=== PATIENT | male | born 1955 | race Caucasian/White ===

== ENCOUNTER 2023-11-13 12:47 | Emergency (ER) | payer OTHER, MEDICARE, SELFPAY ==
[2023-11-13 12:53] VITALS: BP 190/110; PULSE 88; TEMP 37; O2SAT 98
--- NOTE | 2023-11-13 13:10 | XR_ITS ---
The [address] [address] Patient Name: PATITO REYES MRN: [id number] date: 1955 Sex: M Assigned Patient Location: ER Current Patient Location: ER Accession/Order Number: [id number] Exam Date: 11/13/2023 13:13 Report Date: 11/13/2023 13:37 At the request of: SUSHIL JI Procedure: XR ankle RT min 3V EXAM: XR ankle RT min 3V HISTORY: injury COMPARISON: None. TECHNIQUE: 3 views of the right ankle were obtained. FINDINGS: There is no evidence of an acute fracture or dislocation. Mild degenerative changes are seen at the ankle joint with very slight irregularity along the articular surface of the talar dome suggesting an old injury. The subtalar joints are intact. Osteophytes arise from the posterior calcaneus. Diffuse soft tissue swelling about the ankle is noted. XR/XR ankle RT min 3V IMPRESSION: Mild degenerative changes are seen about the ankle. There is no evidence of an acute fracture or dislocation. Diffuse soft tissue swelling is noted. Direct comparison with a previous study would be helpful in determining the chronicity of these findings. Electronically authenticated by: BRYAN VILCHIS Date: 11/13/2023 13:37
--- NOTE | 2023-11-13 13:10 | XR_ITS ---
The [address] [address] Patient Name: PATITO REYES MRN: [id number] date: 1955 Sex: M Assigned Patient Location: ER Current Patient Location: ER Accession/Order Number: [id number] Exam Date: 11/13/2023 13:13 Report Date: 11/13/2023 14:00 At the request of: SUSHIL JI Procedure: XR tibia fibula RT 2V PROCEDURE: XR tibia fibula RT 2V COMPARISON: None. HISTORY: injury FINDINGS: BONES:No acute fracture or dislocation. Enthesopathic spurring of the calcaneus at the Achilles insertion. Enthesopathic spurring of the inferior patella and anterior tibial tubercle SOFT TISSUES:Soft tissue swelling anterior mid pagan demarcated with the BB EFFUSION:None visible. OTHER: Negative. XR/XR tibia fibula RT 2V IMPRESSION: No acute fracture Electronically authenticated by: IRVIN BORGES Date: 11/13/2023 14:00
--- NOTE | 2023-11-13 13:11 | ED_ITS ---
HPI HPI - Extremity Injury (Lower) General Chief Complaint: Extremity Injury, Lower Stated Complaint: LOWER RIGHT EXTREMITY SWELLING Time Seen by Provider: 11/13/23 13:04 Source: patient Mode of arrival: walk-in History of Present Illness HPI Narrative: 68 year old male presents to the ED for pain, swelling to his right lower leg and ankle s/p injury 2 weeks ago. Reports slipping off of his boat; his leg went under the deck. Denies fever, chills, weakness, N/T. Related Data Home Medications ?Medication ?Instructions ?Recorded ?Confirmed rosuvastatin 10 mg tablet 10 mg PO DAILY 11/13/23 11/13/23 Allergies Allergy/AdvReac Type Severity Reaction Status Date / Time Penicillins Allergy Severe Shakiness Verified 11/13/23 12:57 Opioid HPI Opioid Management Most Recent Pain and Opioid Data: Last Pain Scale 5 11/13/23 12:59 Review of Systems ROS Constitutional Denies: fever or chills Cardiovascular Denies: chest pain Respiratory Denies: shortness of breath Musculoskeletal Reports: extremity pain and extremity swelling; Denies: back pain Integumentary/Breast Reports: redness Neurological Denies: numbness in extremities, weakness in extremities or dizziness Exam Constitutional Vital Signs, click to edit/add: Last Vital Signs Temp 98.6 F 11/13/23 12:53 Pulse 88 11/13/23 12:53 Resp 16 11/13/23 12:53 BP 190/110 H 11/13/23 12:53 Pulse Ox 98 11/13/23 12:53 O2 Del Method Room Air 11/13/23 12:53 Common normals: no apparent distress and oriented x3 Orientation/consciousness: Yes awake HENMT Mouth: lip normal Eye Common normals: conjunctivae normal and no scleral icterus Neck & C-Spine Common normals: supple Respiratory Common normals: normal respiratory effort Effort & inspection: able to speak in complete sentences Cardio Common normals: regular rate Peripheral pulses: posterior tibial pulses present and dorsalis pedis pulses present Extremity Other: Raised, erythematous, tender area to right anterior lower leg. There is mild swelling to the lower anterior leg and ankle. Pt denies calf pain, calf tenderness. Pedal pulses palpable. Distal sensation intact. Neuro Common normals: oriented x3 Sensorium/orientation: awake and alert Course Vital Signs Vital signs: Vital Signs Temperature 98.6 F 11/13/23 12:53 Pulse Rate 88 11/13/23 12:53 Respiratory Rate 16 11/13/23 12:53 Blood Pressure 190/110 H 11/13/23 12:53 Pulse Oximetry 98 11/13/23 12:53 Oxygen Delivery Method Room Air 11/13/23 12:53 Temperature 98.6 F 11/13/23 12:53 Pulse Rate 88 11/13/23 12:53 Respiratory Rate 16 11/13/23 12:53 Blood Pressure 190/110 H 11/13/23 12:53 Pulse Oximetry 98 11/13/23 12:53 Oxygen Delivery Method Room Air 11/13/23 12:53 MDM - Extremity Injury (Lower) MDM Narrative Medical decision making narrative: Hematoma was noted on examination to the anterior lower leg. The patient denied calf pain/tenderness. X-ray showed diffuse soft tissue swelling to the ankle. Follow up with pcp for a recheck, further evaluation and treatment. Medical Records Attestation: I reviewed the patient's medical records. Imaging Data XR tib/fib right: Attestation: I have reviewed the pertinent imaging results. Radiologist's impression: ITS Impressions Ankle X-Ray 11/13/23 13:10 IMPRESSION: Mild degenerative changes are seen about the ankle. There is no evidence of an acute fracture or dislocation. Diffuse soft tissue swelling is noted. Direct comparison with a previous study would be helpful in determining the chronicity of these findings. Electronically authenticated by: BRYAN VILCHIS Date: 11/13/2023 13:37 Tibia/Fibula X-Ray 11/13/23 13:10 IMPRESSION: No acute fracture Electronically authenticated by: IRVIN BORGES Date: 11/13/2023 14:00 Discharge Plan Discharge Chief Complaint: Extremity Injury, Lower Clinical Impression: Hematoma Patient Disposition: Home, Self-Care Time of Disposition Decision: 14:52 Condition: Good Mode of Transportation: Private Vehicle Prescriptions / Home Meds: No Action rosuvastatin 10 mg tablet 10 mg PO DAILY Print Language: Upper Sorbian Instructions: Hematoma (ED) Additional Instructions: Return to the ER for new or worsening symptoms. Referrals: Valdo Monzon DO [Primary Care Provider] - 1 week
[2023-11-13 13:49] VITALS: BP 178/80; PULSE 84; O2SAT 99
== END 2023-11-13 14:59 | disposition home or self-care (01) ==
PROVIDERS: Emergency Provider Emergency Medicine; PCP Family Medicine
DX: S80.11XA Contusion of right lower leg, initial encounter (principal); V94.0XXA Hitting object or bottom of body of water due to fall from watercraft, initial encounter
CPT/HCPCS: 73590; 73610; 99283

== ENCOUNTER 2024-03-03 08:15 | Outpatient (OUT) | payer OTHER, SELFPAY ==
[2024-03-03 08:59] LABS: Basophils Absolute Auto 0.1 10^3/uL (0.0-0.1); Basophils Percent Auto 0.8 % (0.2-2.0); Eosinophils Absolute Auto 0.2 10^3/uL (0.0-0.7); Eosinophils Percent Auto 2.6 % (0.9-7.0); Hematocrit 50.3 % (42.0-54.0); Hemoglobin 16.9 g/dL (14.0-18.0); Immature Granulocytes Abs Auto 0.02 10^3/uL (0.00-0.03); Immature Granulocytes Pct Auto 0.3 % (0.0-0.5); Lymphocytes Percent Auto 32.6 % (20.5-60.0); Mean Corpuscular HGB Conc 33.6 g/dL (29.9-35.2); Mean Corpuscular Hemoglobin 29.9 pg (25.9-34.0); Mean Corpuscular Volume 88.9 fL (80.0-94.0); Mean Platelet Volume 10.6 fL (9.5-13.5); Monocytes Absolute Auto 0.7 10^3/uL (0.3-0.8); Monocytes Percent Auto 10.8 % (1.7-12.0); Neutrophils Absolute Auto 3.2 10^3/uL (1.4-6.5); Neutrophils Percent Auto 52.9 % (43.0-75.0); Platelet Count 200 10^3/uL (150-450); Red Blood Count 5.66 10^6/uL (4.70-6.10); Red Cell Distribution Width 12.6 % (11.0-15.0); White Blood Count 6.1 10^3/uL (4.0-11.0)
== END 2024-03-03 08:16 | disposition home or self-care (01) ==
LOC: LAB 08:20
PROVIDERS: PCP Family Medicine
DX: Z01.812 Encounter for preprocedural laboratory examination (principal); H02.839 Dermatochalasis of unspecified eye, unspecified eyelid
CPT/HCPCS: 36415; 85025

== ENCOUNTER 2024-11-22 16:25 | Outpatient (OUT) | payer OTHER, SELFPAY ==
--- NOTE | 2024-11-22 17:06 | XR_ITS ---
[place] [id number] Patient Name: PATITO REYES MRN: [id number] date: 1955 Sex: M Assigned Patient Location: [facility] Current Patient Location: [facility] Accession/Order Number: [id number] Exam Date: 11/22/2024 17:00 Report Date: 11/22/2024 22:12 At the request of: RAMAN CARMONA DO Procedure: XR foot RT min 3V 3 views right foot plain film COMPARISON:None HISTORY: Posterior foot pain. ACUTE FINDINGS: None DEGENERATIVE CHANGE: Posterior and inferior calcaneal spurring. Moderate distal degenerative changes. SOFT TISSUE FINDINGS: Unremarkable JOINT EFFUSION: None POSTOP CHANGES: None BONE MINERALIZATION: Adequate XR/XR foot RT min 3V IMPRESSION: Calcaneal spurring. Degenerative changes. Concern for Achilles tendon tear. Impression dictated by: Damion Chamberlain M.D. 11/22/2024 10:12 PM Dictation Location: [facility] Electronically authenticated by: [id number] Y Date: 11/22/2024 22:12
--- NOTE | 2024-11-22 17:06 | XR_ITS ---
The [address] [address] Patient Name: PATITO REYES MRN: [id number] date: 1955 Sex: M Assigned Patient Location: [facility] Current Patient Location: [facility] Accession/Order Number: [id number] Exam Date: 11/22/2024 17:00 Report Date: 11/22/2024 22:10 At the request of: RAMAN CARMONA DO Procedure: XR ankle RT min 3V 3 views right ankle plain film COMPARISON: None HISTORY: Right posterior foot and ankle pain. Achilles injury ACUTE FINDINGS: None DEGENERATIVE CHANGE: Posterior and inferior calcaneal spurring. A calcific density superior to the Achilles tendon insertion enthesophyte. Adjacent edema in this region. Concern for tear of the Achilles tendon.. SOFT TISSUE FINDINGS: Unremarkable JOINT EFFUSION: None POSTOP CHANGES: None BONE MINERALIZATION: Adequate XR/XR ankle RT min 3V IMPRESSION: Posterior calcaneal enthesophyte with adjacent bony fragments and thickening of the Achilles tendon concerning for tear. Can consider further assessment with MRI of left ankle. Impression dictated by: Damion Chamberlain M.D. 11/22/2024 10:10 PM Dictation Location[facility] Electronically authenticated by: [id number] Y Date: 11/22/2024 22:10
== END 2024-11-22 16:26 | disposition home or self-care (01) ==
PROVIDERS: PCP Family Medicine; Visit Provider Family Medicine
DX: M79.671 Pain in right foot (principal); M25.571 Pain in right ankle and joints of right foot; M77.31 Calcaneal spur, right foot
CPT/HCPCS: 73610; 73630

== ENCOUNTER 2024-12-19 13:43 | Outpatient (RCR) | payer OTHER, SELFPAY | END 2025-01-25 10:13 | disposition home or self-care (01) | LOC: PT 13:43 | PROVIDERS: PCP Family Medicine; Visit Provider Orthopaedic Surgery | DX: M76.61 Achilles tendinitis, right leg (principal) | CPT/HCPCS: 97110; 97112; 97116; 97161 ==

== ENCOUNTER 2025-02-08 14:00 | Emergency (ER) | payer OTHER, MEDICARE, SELFPAY ==
[2025-02-08 14:04] VITALS: BP 145/96; PULSE 122; TEMP 38.1; O2SAT 99; BMI 31.6
--- NOTE | 2025-02-08 14:18 | XR_ITS ---
The [place] [id number] Patient Name: PATITO REYES MRN: [id number] date: 1955 Sex: M Assigned Patient Location: ED.MAIN Current Patient Location: ED.MAIN Accession/Order Number: [id number] Exam Date: 02/08/2025 14:48 Report Date: 02/08/2025 15:35 At the request of: SUSHIL JI Procedure: XR chest 2V XR chest 2V 02/08/2025 2:52 PM SIGNS AND SYMPTOMS: ^cough PROTOCOL: Frontal and lateral radiograph of the chest COMPARISON: None FINDINGS: The trachea is midline. The heart and mediastinal structures are within normal limits. The lung parenchyma is clear. The bony thorax is intact. Degenerative changes are noted in the thoracic spine. XR/XR chest 2V IMPRESSION: No acute cardiopulmonary pathology. Impression dictated by: Darinel Bailey M.D. 02/08/2025 3:35 PM Dictation Location: [place] [address] Electronically authenticated by: [id number] Y Date: 02/08/2025 15:35
--- NOTE | 2025-02-08 14:20 | ED_ITS ---
HPI - URI/Sore Throat General Chief Complaint: Upper Respiratory Infection Stated Complaint: FLU LIKE SYMPTOMS Time Seen by Provider: 02/08/25 14:15 Source: patient History of Present Illness HPI Narrative: 69 year old male presents to the ED for cough, congestion, body aches, fatigue, chills, fever. Onset was 02/04/25. Denies SOB, N/V/D, abd pain. He took Tylenol at 0700 this morning. Related Data Home Medications ?Medication ?Instructions ?Recorded ?Confirmed rosuvastatin 10 mg tablet 10 mg PO DAILY 11/13/2310/25 Previous Rx's ?Medication ?Instructions ?Recorded benzonatate 100 mg capsule 100 mg PO TID PRN cough #20 caps 02/08/25 hydrocodone 10 mg-chlorpheniramine 5 ml PO .nightly DE N cough 6 days 02/08/25 8 mg/5 mL oral susp extend.rel 12hr #30 mL Allergies Allergy/AdvReac Type Severity Reaction Status Date / Time Penicillins Allergy Severe Shakiness Verified 11/13/23 12:57 Review of Systems ROS Constitutional Reports: fever, chills and fatigue Ears, nose, mouth, and throat Reports: nasal discharge and nasal congestion; Denies: throat pain, neck pain, ear pain or ear discharge Cardiovascular Denies: chest pain Respiratory Reports: cough; Denies: shortness of breath Gastrointestinal Denies: abdominal pain, nausea, vomiting or diarrhea Musculoskeletal Reports: back pain Neurological Reports: headache; Denies: dizziness Exam Constitutional Vital Signs, click to edit/add: Last Vital Signs Temp 98.8 F 02/08/25 16:08 Pulse 108 H 02/08/25 15:47 Resp 20 02/08/25 14:04 BP 145/96 H 02/08/25 14:04 Pulse Ox 100 02/08/25 15:47 HENMT Common normals: external ears normal, moist oral mucous membranes and oropharynx normal Eye Common normals: PERRL, EOMs intact bilaterally, conjunctivae normal and no scleral icterus Neck & C-Spine Common normals: supple Chest Chest: symmetrical chest wall rise Respiratory Common normals: normal respiratory effort, no use of accessory muscles and clear to auscultation bilaterally Effort & inspection: able to speak in complete sentences and symmetric chest movement Cardio Common normals: regular rhythm Rate: tachycardic Neuro Common normals: oriented x3, moves all extremities and no focal motor deficits Sensorium/orientation: awake and alert Speech: speech normal Course Vital Signs Vital signs: Vital Signs Temperature 100.6 F H 02/08/25 14:04 Pulse Rate 122 H 02/08/25 14:04 Respiratory Rate 20 02/08/25 14:04 Blood Pressure 145/96 H 02/08/25 14:04 Pulse Oximetry 99 02/08/25 14:04 Temperature 98.8 F 02/08/25 16:08 Pulse Rate 108 H 02/08/25 15:47 Respiratory Rate 20 02/08/25 14:04 Blood Pressure 145/96 H 02/08/25 14:04 Pulse Oximetry 100 02/08/25 15:47 MDM - URI/Sore Throat MDM Narrative Medical decision making narrative: The patient tested positive for influenza A. Covid-19 was negative. Chest x-ray was negative for acute findings. Findings were discussed. He requested something to help him sleep; the coughing is keeping him awake at night. OARRS was reviewed. Prescriptions were provided for Tessalon perles and Tussionex. Follow up with pcp for a recheck, further evaluation and treatment. Return to the ED for worsening symptoms. Medical Records Attestation: I reviewed the patient's medical records. Lab Data Attestation: I reviewed the patient's lab results. Labs: Lab Results 02/08/25 Range/Units 14:10 Influenza Type A Ag Positive A Influenza Type B Ag Negative SARS-CoV-2 Ag (CV2AG) Negative (NEGATIVE) Imaging Data Chest x-ray: Attestation: I have reviewed the pertinent imaging results. Radiologist's impression: ITS Impressions Chest X-Ray 02/08/25 14:18 IMPRESSION: No acute cardiopulmonary pathology. Impression dictated by: Darinel Bailey M.D. 02/08/2025 3:35 PM Dictation Location: [place] [address] Electronically authenticated by: [id number] Y Date: 02/08/2025 15:35 Discharge Plan Discharge Chief Complaint: Upper Respiratory Infection Clinical Impression: Influenza A Patient Disposition: Home, Self-Care Time of Disposition Decision: 15:47 Condition: Good Mode of Transportation: Private Vehicle Prescriptions / Home Meds: New benzonatate 100 mg capsule 100 mg PO TID PRN (Reason: cough) Qty: 20 0RF hydrocodone-chlorpheniramine 10-8 mg/5 mL suspension,extended rel 12 hr 5 ml PO .nightly PRN (Reason: cough) 6 Days Qty: 30 0RF No Action rosuvastatin 10 mg tablet 10 mg PO DAILY Print Language: Citizen Of [place] Instructions: Influenza (ED) Additional Instructions: Return to the ED for worsening symptoms. Referrals: Valdo Monzon DO [Primary Care Provider] - 1 week Discharge Date/Time: 02/08/25 16:00
[2025-02-08 14:34] LABS: SARS-CoV-2 Ag NEGATIVE (NEGATIVE)
[2025-02-08] MEDS: IBUPROFEN 600 MG TABLET PO (14:36)
[2025-02-08] MEDS: ACETAMINOPHEN 325 MG TABLET 650 MG PO (14:36)
--- OUTSIDE RECORDS SUMMARY | 2025-02-08 14:38 | XMS_ITS | Clinical Summary ---
Author Organization [facility] Address [address] [place] [address] Care Team Providers Care Leasing Consultant Name Role Phone Valdo Monzon Tabitha COLEMAN Primary Care Provider [phone] Allergies Active AllergyReactionsCriticalityNoted DateCommentsPenicillin G011/20/2022 Other Reaction(s): Unknown Medications MedicationSigDispense QuantityRefillsLast FilledStart DateEnd DateStatus cyanocobalamin (Vitamin B-12) 1000 MCG tablet 1 (one) time each day at the same timeActive Echinacea 400 MG capsule Active omega-3 (fish oil) 1000 MG capsule 1 capsule 1 (one) time each day at the same timeActive rosuvastatin (Crestor) 10 MG tablet Active Cholecalciferol (Vitamin D3) 1000 units capsule 2 capsules 1 (one) time each day at the same timeActive ascorbic acid (Vitamin C) 500 MG tablet Take 500 mg by mouth DailyActive primidone (Mysoline) 50 MG tablet Indications:Essential tremorTAKE 1/2 TO 1 TABLET AT BEDTIME 30 tablet 5Active diclofenac sodium 3 % gel .VDNEVYU72/25/2025Active Active Problems No known active problems Encounters DateTypeDepartmentCare VqruAjhptpazpqq02/01/2025 8:00 AM ESTOffice Visit [facility] [address] [place] [id number] Noble Fernandes DO Achilles tendinitis of right lower extremity (Primary Dx)5Bamboo flowsheet [facility] [address] [address] Noble Fernandes, 01/23/20250528Fihivn47/24/6977Onwnwv02/16/2025 8:00 AM EDTOffice Visit [facility] [address] [place] [address] Noble Fernandes, DO Achilles tendinitis of right lower ucbirwoct26/16/2025amboo flowsheet [facility] [address] [place] [phone] Noble Fernandes, 12/08/20247691Judphi95/15/2025Travelfrom Last 3 Months Family History Medical HistoryRelationNameCommentsCOPDFatherMerril Fritz BollingerDiabetes FatherMerril Fritz BollingerStrokeMotherCarol Hayden BollingerNo Known Problems SisterNo Known ProblemsSonMelanomaNeg HxRelationNameStatusCommentsBrotherAlivex3 FatherMerril Fritz BollingerDeceasedMotherCarol Hayden BollingerDeceasedSisterAlive x3Son Social History Tobacco UseTypesPacks/DayYears UsedDateSmoking Tobacco: NeverSmokeless Tobacco: Never Tobacco Cessation:Counseling Given: Not Answered Comments:Second hand smoke Alcohol UseStandard Drinks/WeekCommentsYes3 (1 standard drink = 0.6 oz pure alcohol)Never kept records, occasional use.AUDIT-CAnswerDate RecordedQ1: How often do you have a drink containing alcohol?Monthly or less02/23/2023Q2: How many drinks containing alcohol do you have on a typical day when you are drinking?1 or Q3: How often do you have six or more drinks on one occasion?Never02/23/2023Sex and Gender InformationValueDate RecordedSex Assigned at BirthNot on fileLegal OxfSgnm2105/07/2022 11:37 PM EDTGender IdentityNot on fileSexual OrientationNot on fileTravel HistoryTravel StartTravel EndFlorida Last Filed Vital Signs Vital SignReadingTime TakenCommentsBlood Ynytqhjo659/8404/ 2:43 PM EDT Ycbcl59705 3:19 PM QUIDbhsukvbpud46.5 ??C (97.7 ??F)02/24/2023 7:53 AM ESTRespiratory Rate--Oxygen Oruaiufgqg25%03/23/2024 3:19 PM ESTInhaled Oxygen Concentration--Gbieig266 kg (222 lb)01/23/2025 7:52 AM IKKYqzuxi613.9 cm (6') 01/23/2025 7:52 AM ESTBody Mass Index30.11103/26/2024 7:52 AM EST Plan of Treatment DateTypeDepartmentCare Team (Latest Contact Info)Vkkgrdgsttx86/30/2025 3:45 PM ESTOffice Visit [facility] [place] [facility] [address] [place] [address] Noble Fernandes, DO [address] [place] [address] Health MaintenanceDue DateLast DoneCommentsCT Znlulwckqyjz11/02/1957Colonoscopy 1955Colorectal Cancer Wdmbrkuem61/02/1957FIT-DNA1955FIT1955 FOBT1955 8493Xhtxsdpqsflwr27/02/1957Pneumococcal Vaccine: 65+ Years (1 of 1 - PCV)2006COVID-19 Vaccine (2024- season)501/, 05/22/2020, 04/30/2020Influenza GplvlfvKvvrdrhln23/29/2025, 12/25/2023, 01/26/2023, Additional history exists Insurance Care Teams Team MemberRelationshipSpecialtyStart DateEnd Date Valdo Monzon DO [address] [place] [address] [facility]11/20/22
--- OUTSIDE RECORDS SUMMARY | 2025-02-08 14:38 | XMS_ITS | Clinical Summary ---
Author Organization [facility] Address [address] [place] [address] Phone Care Team Providers Care Japanese Interpreter Name Role Phone Unavailable Primary Care Provider Unavailabl e Social History Tobacco UseTypesPacks/DayYears UsedDateSmoking Tobacco: Never AssessedSex and Gender InformationValueDate RecordedSex Assigned at BirthNot on fileLegal Sex Male01/17/2022 2:53 PM ESTGender IdentityNot on fileSexual OrientationNot on file Plan of Treatment Health MaintenanceDue DateLast DoneCommentsCT Mgkezelqtvnw38/02/1957Colonoscopy 1955Colorectal Cancer Bjlmqyvoc09/02/1957FIT-DNA (Cologuard)1955FIT 1955Lipid Panel1955 9552Ftkolwjwyyxbi31/02/1957Yearly Adult Physical 1955MMR Vaccines (1 of 1 - Standard series)1957Hepatitis C Screening 1974DTaP/Tdap/Td Vaccines (1 - Tdap)1978PSA Prostate Cancer Mmnimxsxh40/02/2007Pneumococcal Vaccine (1 of 1 - PCV)2006Zoster Vaccines (1 of 2)2006Influenza Vaccine (#1)5COVID-19 Vaccine (1 - 2024- season)2024RSV High Risk: (Elderly (60+) or Population) (1 - 1- dose 75+ series)08/25/2031HIB VaccinesAged OutNo longer eligible based on patient's age to complete this topicHPV VaccinesAged OutNo longer eligible based on patient's age to complete this topicHepatitis A VaccinesAged OutNo longer eligible based on patient's age to complete this topicHepatitis B VaccinesAged OutNo longer eligible based on patient's age to complete this topicIPV Vaccines Aged OutNo longer eligible based on patient's age to complete this topic Meningococcal VaccineAged OutNo longer eligible based on patient's age to complete this topicRotavirus VaccinesAged OutNo longer eligible based on patient's age to complete this topic
[2025-02-08 15:47] VITALS: PULSE 108; TEMP 37.6; O2SAT 100
[2025-02-08 16:08] VITALS: TEMP 37.1
== END 2025-02-08 16:00 | disposition home or self-care (01) ==
PROVIDERS: Emergency Provider Emergency Medicine; PCP Family Medicine
DX: J10.1 Influenza due to other identified influenza virus with other respiratory manifestations (principal)
CPT/HCPCS: 71046; 87804; 87811; 99283